=== PATIENT | male | born 1995 | race Caucasian/White ===

== ENCOUNTER 2016-10-07 09:41 | Emergency (ER) | payer OTHER ==
[~2016-10-07] VITALS: Ht 152.4 cm; Wt 89.0 kg
[2016-10-07 09:42] VITALS: Ht 152.4 cm; Wt 89.0 kg
[2016-10-07] MEDS ORDERED: ONDANSETRON (ODT) 4 MG TAB ODT STA (10:09)
--- NOTE | 2016-10-07 10:50 | RADRPT ---
PROCEDURE: XR Chest AP portable CLINICAL INDICATION: Short of breath TECHNIQUE: An AP portable radiograph of the chest was submitted. COMPARISON: None. FINDINGS: Support Hardware: None Cardiovascular: The cardiovascular silhouette appears unremarkable. Lung Lopez: The lung lopez appear clear with no nodule, alveolar infiltrate, or interstitial promi nence evident. Pleural Spaces: No pneumothorax or pleural effusion is identified. Osseous Structures: The osseous structures appear intact. Soft Tissues: The soft tissues appear unremarkable. IMPRESSION: Unremarkable portable chest. Physician Sun Date Time Electronically viewed and signed by Andres Smiley Physician on 10/07/2016 10:49 RH/
--- NOTE | 2016-10-07 11:14 | ERD ---
ER Documentation Chief Complaint Date/Time DATE: 10/07/16 TIME: 11:13 Chief Complaint SOB X 5 DAYS HPI Is a 21-year-old male presents emergency department today with his family for complaints of fever that started on Sunday and Sunday, headache and back low back pain on Sunday and feeling short of breath today. States he also had some vomiting and diarrhea on Sunday. States he feels lightheaded. States he smokes marijuana daily. Denies any sore throat, cough. ROS All systems reviewed and are negative except as per history of present illness. Medications Home Meds Active Scripts Acetaminophen* (Tylophen*) 500 Mg Capsule, 1 CAP PO Q6H Y for PAIN AND OR ELEVATED TEMP, #30 CAP Prov:SPRING RODRIGUEZ PA-C 10/07/16 Ibuprofen* (Motrin*) 600 Mg Tab, 600 MG PO Q6, #30 TAB Prov:SPRING RODRIGUEZ PA-C 10/07/16 Dicyclomine Hcl* (Bentyl*) 10 Mg Capsule, 10 MG PO QID, #30 CAP Prov:SPRING RODRIGUEZ PA-C 10/07/16 Ondansetron Hcl* (Zofran*) 4 Mg Tablet, 4 MG PO Q6H for NAUSEA AND/OR VOMITING, #30 TAB Prov:SPRING RODRIGUEZ PA-C 10/07/16 Allergies Allergies: Uncoded Allergies: SULFA (Allergy, Unknown, "UNKNOWN , WHEN I WAS A KID", 10/07/16) PMhx/Soc Medical and Surgical Hx: pt denies Medical Hx, pt denies Surgical Hx Hx Alcohol Use: No Hx Substance Use: Yes (DAILY CANNABIS) Hx Tobacco Use: No Physical Exam Vitals Vital Signs Date Time Temp Pulse Resp B/P Pulse Ox O2 Delivery O2 Flow Rate FiO2 10/07/16 09:42 97.8 88 18 163/88 99 Physical Exam Const: Nontoxic-appearing, no acute distress Head: Atraumatic Eyes: Normal Conjunctiva ENT: Ears TMs normal. Nose no drainage. Throat no erythema no exudate Neck: Full range of motion..~ No meningismus. Resp: Clear to auscultation bilaterally no absent breath sounds. No wheezing Cardio: Regular rate and rhythm, no murmurs Abd: Soft, mild left lower quadrant tenderness, non distended. Normal bowel sounds no right lower quadrant tenderness. No tenderness McBurney Skin: No petechiae or rashes Back: No midline tenderness mild bilateral lumbar paraspinal tenderness. Full active range of motion. No CVA tenderness. Ext: No cyanosis, or edema Neur: Awake and alert Psych: Normal Mood and Affect Results 24 hrs Current Medications Medications (Trade) Dose Ordered Sig/Braydon Route PRN Reason Start Time Stop Time Status Last Admin Dose Admin Ondansetron HCl (Zofran Odt) 4 mg ONCE STAT ODT 10/07/16 10:09 10/07/16 10:11 DC 10/07/16 10:15 DIAGNOSTIC IMAGING REPORT Patient: MIYA REESE : 1995 Age: 21 Sex: M MR #: [id number] DOS: 10/07/16 0000 Ordering MD: SPRING RODRIGUEZ PA-C Location: [facility] Room/Bed: PROCEDURE: XR Chest AP portable CLINICAL INDICATION: Short of breath TECHNIQUE: An AP portable radiograph of the chest was submitted. COMPARISON: None. FINDINGS: Support Hardware: None Cardiovascular: The cardiovascular silhouette appears unremarkable. Lung Nunez: The lung nunez appear clear with no nodule, alveolar infiltrate, or interstitial prominence evident. Pleural Spaces: No pneumothorax or pleural effusion is identified. Osseous Structures: The osseous structures appear intact. Soft Tissues: The soft tissues appear unremarkable. IMPRESSION: Unremarkable portable chest. Physician Sun Date Time Electronically viewed and signed by Physician Sun on 10/07/2016 10:49 RH/ CC: SPRING RODRIGUEZ PA-C Procedures/MDM This is a 21-year-old male presents to the emergency department today with multiple complaints. Signs and symptoms are consistent with viral illness. Given patient's complaint of shortness of breath I did obtain a chest x-ray Chest x-ray is unremarkable. Lung nunez are clear with no nodule, alveolar infiltrate or interstitial prominence evident. Suspicion for pneumonia, PE, abscess, pleural effusion, pneumothorax Patient is afebrile and otherwise well-appearing. He is not tachycardic. His oxygen saturation 99%. His blood pressure was mildly elevated at intake. Low suspicion for acute surgical abdomen, sepsis, meningitis. I have low suspicion for strep pharyngitis, peritonsillar abscess, retropharyngeal abscess, otitis media, PNA, sinusitis, abscess, meningitis, sepsis, or other acute infectious bacterial process. Patient indicated he felt nauseated and therefore was given Zofran here in the emergency department. He did report feeling better. When I went to check on the patient he was sitting in the waiting room playing on his phone. Patient smokes marijuana daily and he was instructed to stop smoking marijuana. Patient was given a prescription for Bentyl, Zofran, Tylenol and Motrin. At this time the patient is stable for discharge and outpatient management. They should follow up with their PCP in the next 1-2. They may return to the emergency department sooner if symptoms persist or worsen. Patient understood and agreed with the plan. Departure Diagnosis: Primary Impression: Multiple complaints Condition: SPRING Quiñonez PA-C Oct 07, 2016 11:14
[2016-10-07] MEDS ORDERED: ONDA4TAB8 PO (11:22)
[2016-10-07] MEDS ORDERED: IBUP-1542 PO (11:22)
[2016-10-07] MEDS ORDERED: DICY10CA60 PO (11:22)
[2016-10-07] MEDS ORDERED: ACET500C5 PO (11:23)
[2016-10-07 12:08] VITALS: BP 114/74; PULSE 70; RESP 20; TEMP 98.2
== END 2016-10-07 12:08 | disposition home or self-care (01) ==
LOC: FTE 09:41
DX: R06.02 Shortness of breath (principal); R50.9 Fever, unspecified; R51 Headache; M54.5 Low back pain; R11.10 Vomiting, unspecified; R19.7 Diarrhea, unspecified; R42 Dizziness and giddiness
CPT/HCPCS: 71010; Z7610